=== PATIENT | female | born 1955 | race Caucasian/White ===

== ENCOUNTER 2025-05-27 00:56 | Emergency (ER) | payer MEDICAID ==
[~2025-05-27] VITALS: Ht 157.5 cm; Wt 118.0 kg
== END 2025-05-27 01:00 ==
LOC: EDBD 00:56 → ER 00:56 → EDSEX 00:56 → ER 01:00
DX: I46.9 Cardiac arrest, cause unspecified (principal); Z79.899 Other long term (current) drug therapy
CPT/HCPCS: 92950; 99284; 99285